=== PATIENT | female | born 1940 | race Two or more races ===

== ENCOUNTER 2023-09-25 09:23 | Emergency (ER) | payer MEDICARE, OTHER ==
[~2023-09-25] VITALS: Ht 165.1 cm; Wt 72.1 kg
[2023-09-25 09:30] VITALS: TEMP 98.4
[2023-09-25] MEDS ORDERED: ACETAMINOPHEN ES 500 MG TABLET ONE (10:43)
[2023-09-25] MEDS: ACETAMINOPHEN ES 500 MG TABLET PO ONE (11:08)
[2023-09-25] MEDS ORDERED: ACET-2605 PO (14:11)
[2023-09-25 14:40] VITALS: BP 138/70; O2SAT 99
== END 2023-09-25 14:41 | disposition home or self-care (01) ==
LOC: ER 09:43
DX: R51.9 Headache, unspecified (principal); M54.2 Cervicalgia; R07.89 Other chest pain; M25.511 Pain in right shoulder; M19.90 Unspecified osteoarthritis, unspecified site; E11.9 Type 2 diabetes mellitus without complications; V43.92XA Unspecified car occupant injured in collision with other type car in traffic accident, initial encounter; Y93.89 Activity, other specified; Y92.488 Other paved roadways as the place of occurrence of the external cause; Y99.8 Other external cause status
CPT/HCPCS: 70450-TC; 71045-TC; 72125-TC; 73030-TC